=== PATIENT | female | born 2000 | race Caucasian/White ===

== ENCOUNTER → 2022-01-05 10:41 | Outpatient (CLI) | payer BC, SELFPAY ==
--- NOTE | ~2022-01-05 | US_ITS ---
EXAMINATION: US thyroid DATE: 01/05/2022 10:55 INDICATION: Nontoxic diffuse goiter. TECHNIQUE: Multiple ultrasound images of the thyroid were obtained. COMPARISON: 12/26/2017. FINDINGS: The right thyroid lobe measures 6.2 x 1.7 x 1.7 cm. The left thyroid lobe measures 5.3 x 1.8 x 1.8 c m. The thyroid parenchyma is diffusely heterogeneous. Heterogeneous, slightly increased vascularity throughout the thyroid. 1.6 x 0.6 x 0.6 cm circumscribed hypoechoic nodule with vascular flow immedia tely adjacent to the right thyroid gland, stable. Left inferior thyroid nodule: 1.2 x 0.9 x 1.0 cm, solid, hypoechoic, wider than tall, smoothly margin ated, without echogenic foci (TR 4), retrospectively is similar in size the prior although it was les s well seen previously and not discretely measured. IMPRESSION: 1. 1.2 cm TR 4 left inferior thyroid nodule. Recommend thyroid ultrasound follow-up in 1, 2, 3, and 5 years. 2. 1.6 x 0.6 x 0 6 cm vascular soft tissue nodule adjacent to the right thyroid lobe, likely represen ting a lymph node and is stable. Reviewed, dictated and finalized at location K. IMPRESSION: 1. 1.2 cm TR 4 left inferior thyroid nodule. Recommend thyroid ultrasound follo w-up in 1, 2, 3, and 5 years. 2. 1.6 x 0.6 x 0 6 cm vascular soft tissue nodule adjacent to the right thyroid lobe, likely representing a lymph node and is stable.
== END ==
PROVIDERS: PCP Family Medicine; Visit Provider Physician Assistant
DX: E04.0 Nontoxic diffuse goiter (principal); Z79.899 Other long term (current) drug therapy
CPT/HCPCS: 76536

== ENCOUNTER → 2022-12-09 13:12 | Outpatient (CLI) | payer BC, SELFPAY ==
--- NOTE | ~2022-12-09 | US_ITS ---
US thyroid INDICATION: Nontoxic diffuse goiter TECHNIQUE: Real-time sonographic images of the thyroid gland were obtained. COMPARISON: 01/05/2022 FINDINGS: The right thyroid lobe measures 6.1 x 1.8 x 1.7 cm. The left thyroid lobe measures 5.3 x 1 .5 x 1.8 cm. There is diffusely heterogeneous echotexture and echogenicity throughout the thyroid gla nd. No discrete nodules identified. Normal vascular flow is present. IMPRESSION: 1. Enlarged heterogeneous thyroid gland without discrete mass. Reviewed, dictated and finalized at location B.
== END ==
PROVIDERS: PCP Physician Assistant; Visit Provider Physician Assistant
DX: E04.0 Nontoxic diffuse goiter (principal)
CPT/HCPCS: 76536